=== PATIENT | male | born 1960 | race African-American/Black ===

== ENCOUNTER 2025-01-19 09:57 | Inpatient (IN) | payer MEDICAID, OTHER ==
[~2025-01-19] VITALS: Ht 185.4 cm; Wt 86.3 kg
[2025-01-19 10:27] LABS: PLATELET COUNT (AUTO) 192 K/uL (150-450); RED BLOOD CELL COUNT(AUTO) 4.97 MIL/uL (4.50-5.90); RED CELL DISTRIBUTION WIDTH 15.9 % (11.5-14.5); WHITE BLOOD COUNT (AUTO) 8.6 K/uL (4.5-11.0)
[2025-01-19] MEDS: ONDANSETRON HCL 4 MG/2 ML VIAL IVP ONE (10:27)
[2025-01-19] MEDS: SODIUM CHLORIDE 0.9% 1,000 ML IV ONE (10:27)
[2025-01-19] MEDS ORDERED: MAGNESIUM CITRATE [LEMON] 300 ML ORAL SOLUTION PO ONE (10:30)
[2025-01-19 10:35] LABS: APPEARANCE,URINE CLEAR (CLEAR); GLUCOSE, URINE (UA) NEGATIVE (NEGATIVE); LEUKOCYTE ESTERASE ,URINE NEGATIVE (NEGATIVE); NITRATE,URINE NEGATIVE (NEGATIVE); OCCULT BLOOD,URINE SMALL (NEGATIVE); SPECIFIC GRAVITIY, URINE 1.022 (1.003-1.030)
[2025-01-19 10:37] LABS: CALCIUM, TOTAL 8.4 mg/dL (8.8-10.5); CREATININE 1.00 mg/dL (0.60-1.30); GLOMERULAR FILTR. RATE CALC > 60 mL/min (>60); GLUCOSE,RANDOM 123 mg/dL (70-110); SODIUM SERUM 139 mmol/L (136-145); UREA NITROGEN, BLOOD 8 mg/dL (7-18)
[2025-01-19 10:41] LABS: ASPARTATE AMINOTRANSFERASE 19.0 U/L (15-37); TOTAL PROTEIN, SERUM 6.9 g/dL (6.4-8.2)
[2025-01-19 10:48] LABS: SQUAMOUS EPITHELIAL CELL,UR Few /LPF (None Seen)
[2025-01-19 11:01] LABS: TROPONIN I-HIGH SENSITIVITY 6 ng/L (<76)
[2025-01-19] MEDS: DILTIAZEM HCL 5 MG/ML 5 ML VIAL IVP ONE (11:12)
[2025-01-19] MEDS ORDERED: HEPARIN SODIUM,PORCINE 5,000 UNITS/ML VIAL IVP ONE (11:30)
[2025-01-19] MEDS ORDERED: HEPARIN SODIUM,PORCINE 5,000 UNITS/ML VIAL IVP PRN ×2 (11:30)
[2025-01-19] MEDS: HEPARIN SODIUM,PORCINE 5,000 UNITS/ML VIAL IVP ONE (11:38)
[2025-01-19] MEDS: HEPARIN SODIUM 25000 UNITS/D5W 250 ML IV PRN (11:40)
[2025-01-19] MEDS: AMIODARONE HCL 150 MG in DEXTROSE 5%-WATER 97 ML IV ONE (11:58)
[2025-01-19] MEDS: AMIODARONE HCL 360 MG in DEXTROSE 5%-WATER 242.8 ML IV ONE (11:59)
[2025-01-19] MEDS ORDERED: AMIODARONE HCL 150 MG in DEXTROSE 5%-WATER 97 ML IV ONE (14:00)
[2025-01-19] MEDS ORDERED: AMIODARONE HCL 360 MG in DEXTROSE 5%-WATER 242.8 ML IV ONE (14:00)
[2025-01-19 14:15] VITALS: BP 118/57; PULSE 106; RESP 14; TEMP 99.1; O2SAT 95
[2025-01-19 14:58] LABS: PLATELET COUNT (AUTO) 187 K/uL (150-450); RED BLOOD CELL COUNT(AUTO) 4.87 MIL/uL (4.50-5.90); RED CELL DISTRIBUTION WIDTH 16.1 % (11.5-14.5); WHITE BLOOD COUNT (AUTO) 8.4 K/uL (4.5-11.0)
[2025-01-19] MEDS ORDERED: SODIUM CHLORIDE 0.9% 500 ML IV ONE (15:34)
[2025-01-19] MEDS: PIPERACILLIN/TAZO 3.375 GM/D5W 50 ML IV SCH (15:42)
[2025-01-19 16:00] VITALS: BP 106/57; PULSE 106; RESP 24; TEMP 99.1; O2SAT 95
[2025-01-19] MEDS: AMIODARONE HCL 540 MG in DEXTROSE 5%-WATER 250 ML IV ONE (17:31)
[2025-01-19] MEDS ORDERED: AMIODARONE HCL 540 MG in DEXTROSE 5%-WATER 250 ML IV ONE (18:00)
[2025-01-19] MEDS: MORPHINE SULFATE 2 MG/ML SYRINGE IVP PRN (19:00)
[2025-01-19 19:09] LABS: PH,URINE DRUG SCREEN 5.5 (5.0-8.0)
[2025-01-19 19:20] LABS: ALCOHOL, URINE DRUG SCREEN NEGATIVE (NEGATIVE); AMPHET/METH SCREEN,URINE NEGATIVE (NEGATIVE); BARBITURATE SCREEN, URINE NEGATIVE (NEGATIVE); CANNABINOID SCREEN,URINE POSITIVE (NEGATIVE); COCAINE SCREEN,URINE NEGATIVE (NEGATIVE); METHADONE SCREEN, URINE NEGATIVE (NEGATIVE)
[2025-01-19] MEDS: MIRTAZAPINE 30 MG TABLET PO SCH (19:23)
[2025-01-19 20:00] VITALS: BP 117/45; PULSE 131; RESP 21; TEMP 98.4; O2SAT 94
[2025-01-19] MEDS: MELATONIN 3 MG TABLET PO SCH (21:05)
[2025-01-19] MEDS: BENZTROPINE MESYLATE 1 MG TABLET PO SCH (21:05)
[2025-01-19] MEDS: HEPARIN SODIUM,PORCINE 5,000 UNITS/ML VIAL IVP PRN (21:47)
[2025-01-20] VITALS: BP 131/72; PULSE 131; RESP 19; TEMP 98.6; O2SAT 96
[2025-01-20 03:25] LABS: PLATELET COUNT (AUTO) 203 K/uL (150-450); RED BLOOD CELL COUNT(AUTO) 4.84 MIL/uL (4.50-5.90); RED CELL DISTRIBUTION WIDTH 15.7 % (11.5-14.5); WHITE BLOOD COUNT (AUTO) 7.8 K/uL (4.5-11.0)
[2025-01-20 03:34] LABS: CALCIUM, TOTAL 8.0 mg/dL (8.8-10.5); CREATININE 0.98 mg/dL (0.60-1.30); GLOMERULAR FILTR. RATE CALC > 60 mL/min (>60); GLUCOSE,RANDOM 149 mg/dL (70-110); SODIUM SERUM 138 mmol/L (136-145); UREA NITROGEN, BLOOD 7 mg/dL (7-18)
[2025-01-20] MEDS: HEPARIN SODIUM 25000 UNITS/D5W 250 ML IV PRN (03:54)
[2025-01-20 04:00] VITALS: BP 113/74; PULSE 124; RESP 20; TEMP 98.9; O2SAT 93
[2025-01-20] MEDS ORDERED: VALB80CA PO (04:27)
[2025-01-20] MEDS ORDERED: MIRT-149 PO (04:28)
[2025-01-20] MEDS ORDERED: RISP4TAB94 PO (04:28)
[2025-01-20 07:06] LABS: TROPONIN I-HIGH SENSITIVITY 4 ng/L (<76)
[2025-01-20 08:00] VITALS: BP 127/73; PULSE 113; RESP 12; TEMP 98.7; O2SAT 93
[2025-01-20] MEDS ORDERED: GLUCAGON,HUMAN RECOMBINANT 1 MG VIAL IM PRN (08:45)
[2025-01-20] MEDS ORDERED: DEXTROSE 50%-WATER 25 GM/50 ML SYRINGE IVP PRN (09:00)
[2025-01-20] MEDS: DIGOXIN 250 MCG/ML 2 ML AMP IVP ONE ×2 (10:15→14:10)
[2025-01-20 10:27] LABS: GLUCOMETER DEV NAME(LOC) ICU.S6; GLUCOSE,POINT OF CARE 171 MG/DL (70-110)
[2025-01-20] MEDS: AMIODARONE HCL 750 MG in DEXTROSE 5%-WATER 485 ML IV SCH (11:14)
[2025-01-20 12:00] VITALS: BP 116/75; PULSE 110; PULSE 96; RESP 12; TEMP 98.7; O2SAT 96
[2025-01-20] MEDS ORDERED: AMIODARONE HCL 750 MG in DEXTROSE 5%-WATER 485 ML IV SCH (12:00)
[2025-01-20] MEDS: ONDANSETRON HCL 4 MG/2 ML VIAL IVP PRN (14:09)
[2025-01-20 15:06] LABS: GLUCOMETER DEV NAME(LOC) ICU.S6; GLUCOSE,POINT OF CARE 106 MG/DL (70-110)
[2025-01-20 16:00] VITALS: PULSE 99
[2025-01-20 20:00] VITALS: BP 132/90; PULSE 120; RESP 24; TEMP 100.2; O2SAT 95
[2025-01-20 20:20] LABS: GLUCOMETER DEV NAME(LOC) ICUN.6; GLUCOSE,POINT OF CARE 116 MG/DL (70-110)
[2025-01-20 21:30] LABS: GLUCOMETER DEV NAME(LOC) ICU.S6; GLUCOSE,POINT OF CARE 128 MG/DL (70-110)
[2025-01-21] VITALS: BP 122/80; PULSE 111; RESP 14; TEMP 99.9; O2SAT 93
[2025-01-21 04:00] VITALS: BP 128/79; PULSE 116; RESP 15; TEMP 99.8; O2SAT 94
[2025-01-21 05:44] LABS: PLATELET COUNT (AUTO) 229 K/uL (150-450); RED BLOOD CELL COUNT(AUTO) 4.92 MIL/uL (4.50-5.90); RED CELL DISTRIBUTION WIDTH 16.5 % (11.5-14.5); WHITE BLOOD COUNT (AUTO) 6.9 K/uL (4.5-11.0)
[2025-01-21 05:53] LABS: CALCIUM, TOTAL 8.2 mg/dL (8.8-10.5); CREATININE 1.02 mg/dL (0.60-1.30); GLOMERULAR FILTR. RATE CALC > 60 mL/min (>60); GLUCOSE,RANDOM 125 mg/dL (70-110); SODIUM SERUM 136 mmol/L (136-145); UREA NITROGEN, BLOOD 6 mg/dL (7-18)
[2025-01-21 06:04] LABS: TROPONIN I-HIGH SENSITIVITY Less Than 4 ng/L (<76)
[2025-01-21 06:31] LABS: GLUCOMETER DEV NAME(LOC) ICU.S6; GLUCOSE,POINT OF CARE 123 MG/DL (70-110)
[2025-01-21 08:00] VITALS: BP 129/66; PULSE 112; RESP 12; TEMP 98.6; O2SAT 95
[2025-01-21 12:00] VITALS: BP 128/79; PULSE 126; RESP 14; TEMP 98.7; O2SAT 95
[2025-01-21 14:45] LABS: GLUCOMETER DEV NAME(LOC) ICUN.6; GLUCOSE,POINT OF CARE 134 MG/DL (70-110)
[2025-01-21 16:00] VITALS: BP 147/90; PULSE 130; RESP 14; TEMP 98.1; O2SAT 95
[2025-01-21] MEDS: DIGOXIN 250 MCG/ML 2 ML AMP IVP ONE (16:35)
[2025-01-21 18:24] LABS: OCCULT BLOOD,GASTRIC FLUID NEGATIVE (NEGATIVE); PH, GASTRIC OKAY
[2025-01-21 18:38] LABS: LACTIC ACID 1.1 mmol/L (0.4-2.0)
[2025-01-21 20:00] VITALS: BP 142/90; PULSE 126; RESP 16; TEMP 98.6; O2SAT 94
[2025-01-21] MEDS: MIRTAZAPINE 30 MG TABLET PO SCH (20:24)
[2025-01-21] MEDS: LORazepam 2 MG/ML VIAL IVP PRN (21:39)
[2025-01-22] VITALS: BP 106/66; PULSE 90; RESP 12; TEMP 97.7; O2SAT 97
[2025-01-22 00:06] LABS: GLUCOMETER DEV NAME(LOC) ICUN.6; GLUCOSE,POINT OF CARE 128 MG/DL (70-110)
[2025-01-22 00:21] LABS: GLUCOMETER DEV NAME(LOC) ICUN.6; GLUCOSE,POINT OF CARE 116 MG/DL (70-110)
[2025-01-22 01:51] LABS: PLATELET COUNT (AUTO) 258 K/uL (150-450); RED BLOOD CELL COUNT(AUTO) 4.74 MIL/uL (4.50-5.90); RED CELL DISTRIBUTION WIDTH 16.1 % (11.5-14.5); WHITE BLOOD COUNT (AUTO) 6.4 K/uL (4.5-11.0)
[2025-01-22 01:55] LABS: CALCIUM, TOTAL 8.0 mg/dL (8.8-10.5); CREATININE 1.07 mg/dL (0.60-1.30); GLOMERULAR FILTR. RATE CALC > 60 mL/min (>60); GLUCOSE,RANDOM 109 mg/dL (70-110); SODIUM SERUM 139 mmol/L (136-145); UREA NITROGEN, BLOOD 8 mg/dL (7-18)
[2025-01-22 04:00] VITALS: BP 92/55; PULSE 92; RESP 14; TEMP 97.4; O2SAT 98
[2025-01-22 05:45] LABS: GLUCOMETER DEV NAME(LOC) ICUN.6; GLUCOSE,POINT OF CARE 102 MG/DL (70-110)
[2025-01-22 08:00] VITALS: BP 108/87; PULSE 118; RESP 16; TEMP 97.8; O2SAT 97
[2025-01-22] MEDS: NICOTINE 21 MG/24 HOUR PATCH TD SCH (10:31)
[2025-01-22 12:00] VITALS: BP 134/71; PULSE 121; RESP 19; TEMP 98; O2SAT 95
[2025-01-22 13:10] LABS: GLUCOMETER DEV NAME(LOC) ICUN.6; GLUCOSE,POINT OF CARE 114 MG/DL (70-110)
[2025-01-22] MEDS ORDERED: SODIUM CHLORIDE 0.9% 500 ML IV ONE (14:21)
[2025-01-22] MEDS ORDERED: ERYTHROMYCIN LACTOBIONATE 250 MG in SODIUM CHLORIDE 0.9% 100 ML IV SCH (15:00)
[2025-01-22] MEDS: METOCLOPRAMIDE HCL 5 MG/ML 2 ML VIAL IVP SCH (15:35)
[2025-01-22 16:00] VITALS: BP 107/36; PULSE 132; RESP 18; TEMP 98.4; O2SAT 97
[2025-01-22 18:41] LABS: GLUCOMETER DEV NAME(LOC) ICU.S6; GLUCOSE,POINT OF CARE 116 MG/DL (70-110)
[2025-01-22 20:00] VITALS: BP 124/87; PULSE 125; PULSE 135; RESP 16; TEMP 99.6; O2SAT 98
[2025-01-23] VITALS: BP 119/78; PULSE 125; PULSE 127; RESP 16; TEMP 99.2; O2SAT 96
[2025-01-23 04:00] VITALS: BP 158/70; PULSE 117; PULSE 128; RESP 17; TEMP 98.9; O2SAT 95
[2025-01-23 06:06] LABS: GLUCOMETER DEV NAME(LOC) ICU.S6; GLUCOSE,POINT OF CARE 128 MG/DL (70-110)
[2025-01-23 06:29] LABS: CALCIUM, TOTAL 8.5 mg/dL (8.8-10.5); CREATININE 1.06 mg/dL (0.60-1.30); GLOMERULAR FILTR. RATE CALC > 60 mL/min (>60); GLUCOSE,RANDOM 103 mg/dL (70-110); SODIUM SERUM 138 mmol/L (136-145); UREA NITROGEN, BLOOD 11 mg/dL (7-18)
[2025-01-23 06:32] LABS: RED BLOOD CELL COUNT(AUTO) 4.86 MIL/uL (4.50-5.90); RED CELL DISTRIBUTION WIDTH 15.9 % (11.5-14.5); WHITE BLOOD COUNT (AUTO) 11.7 K/uL (4.5-11.0)
[2025-01-23 06:36] LABS: PHOSPHORUS 3.6 mg/dL (2.5-4.9)
[2025-01-23] MEDS: HEPARIN SODIUM,PORCINE 5,000 UNITS/ML VIAL IVP PRN (07:34)
[2025-01-23 07:59] LABS: PLATELET COUNT (AUTO) 275 K/uL (150-450)
[2025-01-23 08:00] VITALS: BP 132/82; PULSE 124; RESP 19; TEMP 99.8; O2SAT 95
[2025-01-23] MEDS: *CLINICAL-PERIPHERAL PARENTERAL NUTRITION DOSING CLINICAL ONE (08:58)
[2025-01-23] MEDS: DEXTROSE 5%-0.45% SODIUM CHL 1,000 ML IV ONE (09:19)
[2025-01-23] MEDS: DIGOXIN 250 MCG/ML 2 ML AMP IVP ONE (09:40)
[2025-01-23] MEDS ORDERED: METOPROLOL TARTRATE 5 MG/5 ML VIAL IVP SCH ×2 (10:00→12:00)
[2025-01-23] MEDS: METOPROLOL TARTRATE 5 MG/5 ML VIAL IVP SCH (10:47)
[2025-01-23 12:00] VITALS: BP 136/82; PULSE 98; RESP 13; TEMP 99.2; O2SAT 98
[2025-01-23 12:46] LABS: GLUCOMETER DEV NAME(LOC) ICUN.6; GLUCOSE,POINT OF CARE 116 MG/DL (70-110)
[2025-01-23 12:56] LABS: GLUCOMETER DEV NAME(LOC) ICU.S6; GLUCOSE,POINT OF CARE 123 MG/DL (70-110)
[2025-01-23] MEDS: BISACODYL 10 MG RECTAL RECTAL SUPPOSITORY PR SCH (15:50)
[2025-01-23] MEDS: METOCLOPRAMIDE HCL 5 MG/ML 2 ML VIAL IVP SCH (15:50)
[2025-01-23 16:00] VITALS: BP 134/85; PULSE 125; PULSE 128; RESP 17; TEMP 98.9; O2SAT 99
[2025-01-23 19:41] LABS: GLUCOMETER DEV NAME(LOC) ICU.S6; GLUCOSE,POINT OF CARE 147 MG/DL (70-110)
[2025-01-23 20:00] VITALS: BP 122/95; PULSE 128; RESP 14; TEMP 98.9; O2SAT 97
[2025-01-23] MEDS: PPN SOLUTION 1 EA, SODIUM CHLORIDE 70 MEQ, SODIUM PHOS,M-BASIC-D-BASIC 30 MEQ, POTASSIU... IV SCH (21:48)
[2025-01-23 23:15] LABS: PLATELET COUNT (AUTO) 327 K/uL (150-450); RED BLOOD CELL COUNT(AUTO) 5.03 MIL/uL (4.50-5.90); RED CELL DISTRIBUTION WIDTH 16.3 % (11.5-14.5); WHITE BLOOD COUNT (AUTO) 14.2 K/uL (4.5-11.0)
[2025-01-24] VITALS: BP 124/76; PULSE 104; PULSE 98; RESP 17; TEMP 98.5; O2SAT 98
[2025-01-24 03:41] LABS: GLUCOMETER DEV NAME(LOC) ICU.S6; GLUCOSE,POINT OF CARE 129 MG/DL (70-110)
[2025-01-24 04:00] VITALS: BP 112/67; PULSE 112; RESP 16; TEMP 98.6; O2SAT 94
[2025-01-24 07:12] LABS: GLUCOMETER DEV NAME(LOC) ICUN.6; GLUCOSE,POINT OF CARE 128 MG/DL (70-110)
[2025-01-24 08:00] VITALS: BP 138/70; PULSE 116; RESP 16; TEMP 98.8; O2SAT 96
[2025-01-24] MEDS: DIGOXIN 250 MCG/ML 2 ML AMP IVP SCH (08:55)
[2025-01-24 09:31] LABS: PLATELET COUNT (AUTO) 319 K/uL (150-450); RED BLOOD CELL COUNT(AUTO) 4.92 MIL/uL (4.50-5.90); RED CELL DISTRIBUTION WIDTH 16.2 % (11.5-14.5); WHITE BLOOD COUNT (AUTO) 13.4 K/uL (4.5-11.0)
[2025-01-24 09:42] LABS: CALCIUM, TOTAL 8.3 mg/dL (8.8-10.5); CREATININE 1.02 mg/dL (0.60-1.30); GLOMERULAR FILTR. RATE CALC > 60 mL/min (>60); GLUCOSE,RANDOM 125 mg/dL (70-110); SODIUM SERUM 136 mmol/L (136-145); UREA NITROGEN, BLOOD 11 mg/dL (7-18)
[2025-01-24 09:46] LABS: PHOSPHORUS 3.0 mg/dL (2.5-4.9)
[2025-01-24] MEDS: POTASSIUM CHL 10 MEQ/WATER 50 ML IV SCH (10:13)
[2025-01-24 12:00] VITALS: BP 106/62; PULSE 128; RESP 18; TEMP 97.8; O2SAT 97
[2025-01-24] MEDS: INSULIN LISPRO 100 UNITS/ML SQ PRN (12:18)
[2025-01-24 12:55] LABS: GLUCOMETER DEV NAME(LOC) ICUN.6; GLUCOSE,POINT OF CARE 159 MG/DL (70-110)
[2025-01-24 16:00] VITALS: BP 140/86; PULSE 133; RESP 24; TEMP 98.6; O2SAT 96
[2025-01-24 20:00] VITALS: BP 142/88; PULSE 122; RESP 18; TEMP 98.5; O2SAT 97
[2025-01-24 20:55] LABS: GLUCOMETER DEV NAME(LOC) ICUN.6; GLUCOSE,POINT OF CARE 147 MG/DL (70-110)
[2025-01-24] MEDS: PPN SOLUTION 1 EA, SODIUM CHLORIDE 70 MEQ, SODIUM PHOS,M-BASIC-D-BASIC 30 MEQ, POTASSIU... IV SCH (22:11)
[2025-01-24] MEDS: ETHYL ALCOHOL 62% ANTISEPTIC NASAL SANITIZER 0.6 ML AMPUL NASAL SCH (22:21)
[2025-01-25] VITALS: BP 127/80; PULSE 119; RESP 20; TEMP 98.7; O2SAT 95
[2025-01-25 04:00] VITALS: BP 126/71; PULSE 125; RESP 20; TEMP 98.9; O2SAT 96
[2025-01-25 06:02] LABS: PLATELET COUNT (AUTO) 307 K/uL (150-450); RED BLOOD CELL COUNT(AUTO) 4.76 MIL/uL (4.50-5.90); RED CELL DISTRIBUTION WIDTH 15.9 % (11.5-14.5); WHITE BLOOD COUNT (AUTO) 17.3 K/uL (4.5-11.0)
[2025-01-25 06:12] LABS: CALCIUM, TOTAL 8.6 mg/dL (8.8-10.5); CREATININE 1.06 mg/dL (0.60-1.30); GLOMERULAR FILTR. RATE CALC > 60 mL/min (>60); GLUCOSE,RANDOM 134 mg/dL (70-110); SODIUM SERUM 137 mmol/L (136-145); UREA NITROGEN, BLOOD 11 mg/dL (7-18)
[2025-01-25 06:16] LABS: PHOSPHORUS 3.2 mg/dL (2.5-4.9)
[2025-01-25 06:35] LABS: GLUCOMETER DEV NAME(LOC) ICU.S6; GLUCOSE,POINT OF CARE 125 MG/DL (70-110)
[2025-01-25 08:00] VITALS: BP 121/57; PULSE 101; RESP 19; TEMP 98.9; O2SAT 96
[2025-01-25 12:00] VITALS: BP 120/61; PULSE 123; RESP 19; TEMP 98.9; O2SAT 94
[2025-01-25] MEDS: DIGOXIN 250 MCG/ML 2 ML AMP IVP ONE (12:05)
[2025-01-25 14:11] LABS: GLUCOMETER DEV NAME(LOC) ICUN.6; GLUCOSE,POINT OF CARE 120 MG/DL (70-110)
[2025-01-25 14:53] VITALS: BP 123/71; PULSE 112; RESP 18; TEMP 98.1; O2SAT 95
[2025-01-25 20:00] VITALS: BP 111/84; PULSE 117; RESP 20; TEMP 98.8; O2SAT 97
[2025-01-26] VITALS (7 sets, daily range): BP systolic 103–139; BP diastolic 70–90; PULSE 92–131; RESP 19–20; TEMP 97.2–98.6; O2SAT 96–99
[2025-01-26 00:15] LABS: GLUCOMETER DEV NAME(LOC) 5N.2C; GLUCOSE,POINT OF CARE 122 MG/DL (70-110)
[2025-01-26 03:26] LABS: GLUCOMETER DEV NAME(LOC) 5N.1D; GLUCOSE,POINT OF CARE 137 MG/DL (70-110)
[2025-01-26 06:40] LABS: PLATELET COUNT (AUTO) 322 K/uL (150-450); RED BLOOD CELL COUNT(AUTO) 4.71 MIL/uL (4.50-5.90); RED CELL DISTRIBUTION WIDTH 15.7 % (11.5-14.5); WHITE BLOOD COUNT (AUTO) 18.8 K/uL (4.5-11.0)
[2025-01-26 06:53] LABS: CALCIUM, TOTAL 8.5 mg/dL (8.8-10.5); CREATININE 1.04 mg/dL (0.60-1.30); GLOMERULAR FILTR. RATE CALC > 60 mL/min (>60); GLUCOSE,RANDOM 118 mg/dL (70-110); SODIUM SERUM 135 mmol/L (136-145); UREA NITROGEN, BLOOD 11 mg/dL (7-18)
[2025-01-26 07:10] LABS: PHOSPHORUS 3.6 mg/dL (2.5-4.9)
[2025-01-26 07:40] LABS: GLUCOMETER DEV NAME(LOC) 5N.1D; GLUCOSE,POINT OF CARE 118 MG/DL (70-110)
[2025-01-26] MEDS: POTASSIUM CHL 10 MEQ/WATER 50 ML IV SCH (10:30)
[2025-01-26] MEDS: DIGOXIN 250 MCG/ML 2 ML AMP IVP ONE (13:38)
[2025-01-26 17:25] LABS: GLUCOMETER DEV NAME(LOC) 5N.1D; GLUCOSE,POINT OF CARE 135 MG/DL (70-110)
[2025-01-26 19:11] LABS: GLUCOMETER DEV NAME(LOC) 5N.1D; GLUCOSE,POINT OF CARE 131 MG/DL (70-110)
[2025-01-26] MEDS: MIRTAZAPINE 15 MG TABLET PO SCH (21:00)
[2025-01-27] VITALS (7 sets, daily range): BP systolic 122–143; BP diastolic 73–104; PULSE 98–128; RESP 17–20; TEMP 97.5–98.6; O2SAT 97–100
[2025-01-27] MEDS: SODIUM CHLORIDE IV SCH (00:05)
[2025-01-27] MEDS: [UNRECOGNIZED DRUG - OTHER] IV SCH (00:05)
[2025-01-27] MEDS: SODIUM PHOS M BASIC D BASIC IV SCH (00:05)
[2025-01-27] MEDS: PPN IV SCH (00:05)
[2025-01-27 06:16] LABS: GLUCOMETER DEV NAME(LOC) 5N.1D; GLUCOSE,POINT OF CARE 126 MG/DL (70-110)
[2025-01-27 06:18] LABS: CALCIUM, TOTAL 8.7 mg/dL (8.8-10.5); CREATININE 1.02 mg/dL (0.60-1.30); GLOMERULAR FILTR. RATE CALC > 60 mL/min (>60); GLUCOSE,RANDOM 119 mg/dL (70-110); SODIUM SERUM 136 mmol/L (136-145); UREA NITROGEN, BLOOD 11 mg/dL (7-18)
[2025-01-27 06:19] LABS: PHOSPHORUS 2.9 mg/dL (2.5-4.9)
[2025-01-27 16:06] LABS: GLUCOMETER DEV NAME(LOC) 5N.2C; GLUCOSE,POINT OF CARE 132 MG/DL (70-110)
[2025-01-27 16:06] LABS: GLUCOMETER DEV NAME(LOC) 5N.2C; GLUCOSE,POINT OF CARE 129 MG/DL (70-110)
[2025-01-28 05:26] LABS: GLUCOMETER DEV NAME(LOC) 5N.1D; GLUCOSE,POINT OF CARE 136 MG/DL (70-110)
[2025-01-28 05:26] LABS: GLUCOMETER DEV NAME(LOC) 5N.1D; GLUCOSE,POINT OF CARE 114 MG/DL (70-110)
[2025-01-28 05:46] LABS: GLUCOMETER DEV NAME(LOC) 5N.2C; GLUCOSE,POINT OF CARE 134 MG/DL (70-110)
[2025-01-28 05:47] VITALS: BP 126/73; PULSE 120; RESP 20; TEMP 98.2; O2SAT 98
[2025-01-28 06:10] LABS: CALCIUM, TOTAL 8.5 mg/dL (8.8-10.5); CREATININE 0.97 mg/dL (0.60-1.30); GLOMERULAR FILTR. RATE CALC > 60 mL/min (>60); GLUCOSE,RANDOM 117 mg/dL (70-110); SODIUM SERUM 136 mmol/L (136-145); UREA NITROGEN, BLOOD 10 mg/dL (7-18)
[2025-01-28 06:13] LABS: PHOSPHORUS 2.9 mg/dL (2.5-4.9)
[2025-01-28 08:47] VITALS: BP 99/76; PULSE 85; RESP 19; TEMP 98.1; O2SAT 98
[2025-01-28 12:26] VITALS: BP 124/83; PULSE 121; RESP 20; TEMP 98.1; O2SAT 98
[2025-01-28 13:05] LABS: GLUCOMETER DEV NAME(LOC) 5N.2C; GLUCOSE,POINT OF CARE 118 MG/DL (70-110)
[2025-01-28 17:26] LABS: GLUCOMETER DEV NAME(LOC) 5N.2C; GLUCOSE,POINT OF CARE 133 MG/DL (70-110)
[2025-01-28 20:24] VITALS: BP 119/90; PULSE 117; RESP 20; TEMP 98.4; O2SAT 98
[2025-01-28] MEDS: METOPROLOL TARTRATE 25 MG TABLET PO SCH (21:19)
[2025-01-28 23:40] VITALS: BP 146/84; PULSE 98; RESP 20; TEMP 98.6; O2SAT 98
[2025-01-29 00:41] LABS: GLUCOMETER DEV NAME(LOC) 5N.2C; GLUCOSE,POINT OF CARE 134 MG/DL (70-110)
[2025-01-29 03:24] VITALS: BP 119/82; PULSE 125; RESP 18; TEMP 98.2; O2SAT 97
[2025-01-29 05:50] LABS: GLUCOMETER DEV NAME(LOC) 5N.2C; GLUCOSE,POINT OF CARE 125 MG/DL (70-110)
[2025-01-29 06:45] LABS: PLATELET COUNT (AUTO) 381 K/uL (150-450); RED BLOOD CELL COUNT(AUTO) 4.40 MIL/uL (4.50-5.90); RED CELL DISTRIBUTION WIDTH 15.8 % (11.5-14.5); WHITE BLOOD COUNT (AUTO) 13.7 K/uL (4.5-11.0)
[2025-01-29 07:04] LABS: PHOSPHORUS 3.3 mg/dL (2.5-4.9)
[2025-01-29 07:14] LABS: CALCIUM, TOTAL 8.9 mg/dL (8.8-10.5); CREATININE 0.93 mg/dL (0.60-1.30); GLOMERULAR FILTR. RATE CALC > 60 mL/min (>60); GLUCOSE,RANDOM 114 mg/dL (70-110); SODIUM SERUM 134 mmol/L (136-145); UREA NITROGEN, BLOOD 11 mg/dL (7-18)
[2025-01-29 07:55] VITALS: BP 129/88; PULSE 92; RESP 18; TEMP 97.9; O2SAT 96
[2025-01-29] MEDS: DIGOXIN 125 MCG TABLET PO SCH (09:09)
[2025-01-29] MEDS: METOPROLOL TARTRATE 50 MG TABLET PO SCH (09:11)
[2025-01-29 12:19] VITALS: BP 139/74; PULSE 87; RESP 18; TEMP 98; O2SAT 99
[2025-01-29 15:16] VITALS: BP 121/63; PULSE 86; RESP 18; TEMP 98.4; O2SAT 100
[2025-01-29] MEDS: AMIODARONE HCL 200 MG TABLET PO SCH (15:30)
[2025-01-29 16:55] LABS: GLUCOMETER DEV NAME(LOC) 5N.2C; GLUCOSE,POINT OF CARE 150 MG/DL (70-110)
[2025-01-29 19:46] VITALS: BP 132/83; PULSE 127; RESP 18; TEMP 98.2; O2SAT 98
[2025-01-29] MEDS: APIXABAN 5 MG TABLET PO SCH (20:00)
[2025-01-29] MEDS: SODIUM CHLORIDE IV SCH (22:00)
[2025-01-29] MEDS: PPN IV SCH (22:00)
[2025-01-29] MEDS: SODIUM PHOS M BASIC D BASIC IV SCH (22:00)
[2025-01-29] MEDS: [UNRECOGNIZED DRUG - OTHER] IV SCH (22:00)
[2025-01-29 23:39] VITALS: BP 123/82; PULSE 101; RESP 19; TEMP 99.1; O2SAT 99
[2025-01-30 04:18] VITALS: BP 139/73; PULSE 109; RESP 19; TEMP 98.6; O2SAT 96
[2025-01-30 06:06] LABS: GLUCOMETER DEV NAME(LOC) 5S.2D; GLUCOSE,POINT OF CARE 337 MG/DL (70-110)
[2025-01-30 06:06] LABS: GLUCOMETER DEV NAME(LOC) 5S.2D; GLUCOSE,POINT OF CARE 128 MG/DL (70-110)
[2025-01-30 06:40] LABS: PLATELET COUNT (AUTO) 449 K/uL (150-450); RED BLOOD CELL COUNT(AUTO) 4.11 MIL/uL (4.50-5.90); RED CELL DISTRIBUTION WIDTH 15.9 % (11.5-14.5); WHITE BLOOD COUNT (AUTO) 12.5 K/uL (4.5-11.0)
[2025-01-30 06:53] LABS: CALCIUM, TOTAL 9.0 mg/dL (8.8-10.5); CREATININE 1.13 mg/dL (0.60-1.30); GLOMERULAR FILTR. RATE CALC > 60 mL/min (>60); GLUCOSE,RANDOM 92 mg/dL (70-110); PHOSPHORUS 3.7 mg/dL (2.5-4.9); SODIUM SERUM 134 mmol/L (136-145); UREA NITROGEN, BLOOD 11 mg/dL (7-18)
[2025-01-30 07:34] VITALS: BP 95/79; PULSE 118; RESP 19; TEMP 98.6; O2SAT 97
[2025-01-30 11:17] VITALS: BP 138/73; PULSE 100; RESP 18; TEMP 98.4; O2SAT 97
[2025-01-30 12:21] LABS: GLUCOMETER DEV NAME(LOC) 5S.1D; GLUCOSE,POINT OF CARE 103 MG/DL (70-110)
[2025-01-30 15:37] VITALS: BP 109/84; PULSE 118; RESP 18; TEMP 98.2; O2SAT 99
[2025-01-30 19:39] VITALS: BP 138/79; PULSE 128; RESP 19; TEMP 98.4; O2SAT 100
[2025-01-30 21:56] LABS: GLUCOMETER DEV NAME(LOC) 5S.1D; GLUCOSE,POINT OF CARE 111 MG/DL (70-110)
[2025-01-30] MEDS: [UNRECOGNIZED DRUG - OTHER] IV SCH (22:52)
[2025-01-30] MEDS: SODIUM PHOS M BASIC D BASIC IV SCH (22:52)
[2025-01-30] MEDS: SODIUM CHLORIDE IV SCH (22:52)
[2025-01-30] MEDS: PPN IV SCH (22:52)
[2025-01-30 23:29] VITALS: BP 149/89; PULSE 105; RESP 19; TEMP 98.6; O2SAT 100
[2025-01-31 03:29] VITALS: BP 138/78; PULSE 89; RESP 19; TEMP 98.2; O2SAT 96
[2025-01-31 06:33] LABS: PLATELET COUNT (AUTO) 473 K/uL (150-450); RED BLOOD CELL COUNT(AUTO) 4.16 MIL/uL (4.50-5.90); RED CELL DISTRIBUTION WIDTH 16.2 % (11.5-14.5); WHITE BLOOD COUNT (AUTO) 11.3 K/uL (4.5-11.0)
[2025-01-31 06:53] LABS: ASPARTATE AMINOTRANSFERASE 34 U/L (15-37); CALCIUM, TOTAL 9.1 mg/dL (8.8-10.5); CREATININE 1.04 mg/dL (0.60-1.30); GLOMERULAR FILTR. RATE CALC > 60 mL/min (>60); GLUCOSE,RANDOM 95 mg/dL (70-110); PHOSPHORUS 3.7 mg/dL (2.5-4.9); SODIUM SERUM 135 mmol/L (136-145); TOTAL PROTEIN, SERUM 6.8 g/dL (6.4-8.2); UREA NITROGEN, BLOOD 13 mg/dL (7-18)
[2025-01-31 07:11] VITALS: BP 138/71; PULSE 85; RESP 18; TEMP 98; O2SAT 96
[2025-01-31] MEDS: AMIODARONE HCL 200 MG TABLET PO SCH (08:36)
[2025-01-31 09:41] LABS: GLUCOMETER DEV NAME(LOC) 5S.2D; GLUCOSE,POINT OF CARE 98 MG/DL (70-110)
[2025-01-31] MEDS ORDERED: BENZ-247 PO (12:59)
[2025-01-31] MEDS ORDERED: OLAN10TA74 PO (12:59)
[2025-01-31] MEDS ORDERED: AMIO200T74 PO (12:59)
[2025-01-31] MEDS ORDERED: DIGO125T84 PO (12:59)
[2025-01-31] MEDS ORDERED: APIX5TAB PO (12:59)
[2025-01-31] MEDS ORDERED: AMOX-457 PO (12:59)
[2025-01-31] MEDS ORDERED: METO50 PO (12:59)
[2025-01-31 18:30] LABS: GLUCOMETER DEV NAME(LOC) 5S.1D; GLUCOSE,POINT OF CARE 126 MG/DL (70-110)
== END 2025-01-31 13:25 | disposition home or self-care (01) | DRG 247 ==
LOC: EMS 09:57 → EDH 12:50 → ICU 14:15 → 5N 01-25 14:30 → 5S 01-29 13:50
PROVIDERS: ADMIT Internal Medicine; ATTEND Internal Medicine
PROC: 05HA33Z Insertion of Infusion Device into Left Brachial Vein, Percutaneous Approach (ICD-10-PCS; principal; 2025-01-23)
PROC: B54NZZA Ultrasonography of Left Upper Extremity Veins, Guidance (ICD-10-PCS; 2025-01-23)
PROC: 0D9670Z Drainage of Stomach with Drainage Device, Via Natural or Artificial Opening (ICD-10-PCS; 2025-01-23)
PROC: 05H933Z Insertion of Infusion Device into Right Brachial Vein, Percutaneous Approach (ICD-10-PCS; 2025-01-25)
PROC: B54MZZA Ultrasonography of Right Upper Extremity Veins, Guidance (ICD-10-PCS; 2025-01-25)
DX: K56.7 Ileus, unspecified (principal); I42.9 Cardiomyopathy, unspecified; I50.30 Unspecified diastolic (congestive) heart failure; R65.10 Systemic inflammatory response syndrome (SIRS) of non-infectious origin without acute organ dysfunction; E44.0 Moderate protein-calorie malnutrition; I48.92 Unspecified atrial flutter; I48.91 Unspecified atrial fibrillation; F17.210 Nicotine dependence, cigarettes, uncomplicated; G24.01 Drug induced subacute dyskinesia; K52.9 Noninfective gastroenteritis and colitis, unspecified; F20.9 Schizophrenia, unspecified
CPT/HCPCS: 36245; 36569; 71045; 74018; 74019; 74176; 76937; 80048; 80053; 80076; 80162; 80307; 81001; 82271; 82962; 83036; 83605; 83615; 83690; 83735; 83880; 84100; 84132; 84443; 84484; 85025; 85610; 85730; 87081; 93005; 93306; 93971; 96361; 96365; 96368; 96375; 99285; J0282; J0610; J1160; J1364; J1644; J2060; J2270; J2405; J2543; J2765; J3480; J3490; J7030; J7040; J7050; J7060; J7070; J7131; 36415-L1; 36415-TC; X7700

== ENCOUNTER 2025-05-15 12:46 | Emergency (ER) | payer OTHER ==
[~2025-05-15] VITALS: Ht 185.4 cm; Wt 109.1 kg
[~2025-05-15 12:46] MED LIST: AMIO200T74 PO; AMOX-457 PO; APIX5TAB PO; BENZ-247 PO; DIGO125T84 PO; METO50 PO; MIRT-149 PO; OLAN10TA74 PO; RISP4TAB94 PO; VALB80CA PO
[2025-05-15 14:58] VITALS: BP 142/123; PULSE 105; RESP 20; TEMP 98.2; O2SAT 100
[2025-05-15] MEDS ORDERED: CIPR7.5D7 AU (15:04)
[2025-05-15] MEDS ORDERED: ACET-2247 PO (15:11)
[2025-05-15] MEDS ORDERED: IBUP-1492 PO (15:11)
== END 2025-05-15 15:07 | disposition home or self-care (01) ==
LOC: EMS 12:53
DX: H60.93 Unspecified otitis externa, bilateral (principal); F31.9 Bipolar disorder, unspecified; E11.9 Type 2 diabetes mellitus without complications; I10 Essential (primary) hypertension; F20.9 Schizophrenia, unspecified; F17.210 Nicotine dependence, cigarettes, uncomplicated; H91.93 Unspecified hearing loss, bilateral
CPT/HCPCS: 99283; Z7502